=== PATIENT | female | born 1990 | race Two or more races ===

== ENCOUNTER 2023-07-28 11:54 | Emergency (ER) | payer MEDICAID, OTHER ==
[~2023-07-28] VITALS: Ht 152.4 cm; Wt 59.4 kg
[2023-07-28] MEDS: KETOROLAC TROMETH 30 MG/ML 1ML VIAL IM ONE (13:32)
[2023-07-28] MEDS: DICYCLOMINE HCL (10MG/ML) 2 ML AMPULE IM ONE (13:32)
[2023-07-28 13:45] LABS: Urine Bacteria FEW /hpf (None Seen); Urine Blood Negative /uL (Negative); Urine Clarity Clear (Clear); Urine Color Light-Yellow (Yellow); Urine Mucus FEW (None Seen); Urine Protein, UAD Negative (Negative); Urine Specific Gravity 1.012 (1.001-1.035); Urine Urobilinogen Normal (Negative); Urine WBC 1 /hpf (0 - 5)
[2023-07-28 14:16] LABS: Chloride 108 mmol/L (98-107); Potassium 4.2 mmol/L (3.5-5.1); Sodium 137 mmol/L (136-145)
[2023-07-28 14:17] LABS: Anion Gap 3 (5-15); Calcium 9.9 mg/dL (8.7-10.4); Carbon Dioxide 26 mmol/L (20-30)
[2023-07-28 14:19] LABS: Basophils # (auto) 0 10 ^3/uL (0-0.2); Basophils % (auto) 0.3 % (0.0-2.0); Eosinophils # (auto) 0 10 ^3/uL (0-0.8); Eosinophils % (auto) 0.1 % (0.0-7.0); Hematocrit 41.7 % (36.0-46.0); Hemoglobin 14.1 g/dL (12.2-16.2); Lymphocytes # (auto) 1.8 10 ^3/uL (0.4-5.4); Lymphocytes % (auto) 23.9 % (10.0-50.0); Mean Corpuscular Hemoglobin 31.9 pg (28.0-32.0); Mean Corpuscular Hgb Conc. 33.7 g/dL (32.0-36.0); Mean Corpuscular Volume 94.6 fL (80.0-100.0); Monocytes # (auto) 0.4 10 ^3/uL (0-1.3); Monocytes % (auto) 4.7 % (0.0-12.0); Neutrophils # (auto) 5.3 10 ^3/uL (1.6-8.6); Nucleated Red Blood Cells % 0.2 %; Red Blood Cells 4.41 10^6/uL (4.0-5.20); Red Cell Distribution Width 13.4 % (11.8-14.3); White Blood Cell 7.5 10^3/uL (4.4-10.8)
[2023-07-28 14:22] LABS: BUN/Creatinine Ratio 12.1 (10.0-20.0); Blood Urea Nitrogen 7 mg/dL (9-23); Glucose 86 mg/dL (74-106)
[2023-07-28 14:23] LABS: Lipase 35 U/L (12-53)
[2023-07-28] MEDS ORDERED: NAP500T PO (15:07)
[2023-07-28] MEDS ORDERED: HYOS0.1289 PO (15:07)
[2023-07-28 15:18] VITALS: BP 110/73; PULSE 64; RESP 17; TEMP 98; O2SAT 97
== END 2023-07-28 15:19 | disposition home or self-care (01) ==
LOC: ER 12:01
DX: R51.9 Headache, unspecified (principal); R10.12 Left upper quadrant pain; Z32.02 Encounter for pregnancy test, result negative
CPT/HCPCS: 36415; 80048; 81001; 81025; 83690; 85025; 96372; 99284; J0500; J1885